=== PATIENT | male | born 1975 | race Caucasian/White ===

== ENCOUNTER 2017-01-26 13:05 | Emergency (ER) | payer OTHER ==
[2017-01-26 13:31] VITALS: BP 149/92; PULSE 83; RESP 16; TEMP 98.9; O2SAT 92
[2017-01-26] MEDS ORDERED: CEPHALEXIN 500 MG CAP PO ONE (14:45)
--- NOTE | 2017-01-26 14:49 | EDPHY ---
H & P Time Seen by Provider: 01/26/17 14:39 HPI/ROS: CHIEF COMPLAINT: Left middle digit lens grinder rough injury HISTORY OF PRESENT ILLNESS: 41-year-old [id number] male with up-to- date tetanus sustained accidental laceration to his left middle digit palmar aspect PIP joint when he was using a lens grinder rough that slipped. He is complaining of inability to flex at the PIP joint, complaining decreased sensation distally. No foreign body sensation. Occurred shortly prior to arrival. PRIMARY CARE PROVIDER:worker's compensation 2) HEAD: Normocephalic 3) HEENT: sclera anicteric 4) LUNGS: Breathing comfortably. 5) SKIN: left middle digit palmar aspect at the PIP joint transverse 1.5 cm laceration 6) MUSCULOSKELETAL: no malrotation. Normal cascading of digit.. FDP and FDS are nonfunctional of the affected digit. 7) NEUROLOGIC: Decreased sensation distally. Smoking Status: Current every day smoker Constitutional: Initial Vital Signs Temperature (C) 37.2 C 01/26/17 13:27 Heart Rate 83 01/26/17 13:27 Respiratory Rate 16 01/26/17 13:27 Blood Pressure 149/92 H 01/26/17 13:27 O2 Sat (%) 92 01/26/17 13:27 O2 Delivery Mode Room Air Allergies/Adverse Reactions: No Known Allergies Allergy (Unverified 01/26/17 13:26) Home Medications: Medication Instructions Recorded Cephalexin [Keflex] 500 mg PO TID 7 Days cap 01/26/17 Hydrocodone/APAP 5/325 [Antimony 1 tab PO Q6 PRN #7 tab 01/26/17 5/325 (RX)] Lisinopril 01/26/17 MDM/Departure - MDM Imaging Results: Imaging Impressions Finger X-Ray 01/26/17 13:31 Impression: Negative. No acute fracture or foreign body. Images reviewed myself Procedures: Procedure: Laceration repair. I explained the indications, risks and benefits for both laceration repair and anesthetic administration. Verbal consent was obtained from the patient . The laceration on the left middle digit was anesthetized using 0.5% bupivicaine without epinephrine . After anesthetic administered the patient was observed for a period of time and had no apparent adverse effects. The wound was cleaned , prepped, draped in normal sterile fashion and explored to its base. No foreign body seen, no foreign bodies palpated. Unable to visualize deep structures, he is noted to have FDP and FDS malfunction The wound was closed with 3 simple interrupted 5 O Ethilon sutures.. The wound repair was simple. The procedure was performed by myself. Patient has been informed that scarring will occur, although efforts have been made to minimize this. Procedure: Splint An aluminum finger splint was applied by ER aviation survival technician. After application of the splint I returned and re-examined the patient. The splint was adequately immobilizing the joint and distal to the splint the patient's circulation and sensation were intact. Patient shows no signs of compartment syndrome. Was given orthopedic precautions. Medications Given: Discontinued Medications Cephalexin HCl (Keflex) 500 mg PO EDNOW ONE PRN Reason: Protocol Stop: 01/26/17 14:46 Last Admin: 01/26/17 14:58 Dose: 500 mg ED Course/Re-evaluation: Patient given dose of oral Keflex, tetanus is already up-to-date. Phone consultation with on-call hand surgery Dr. Mendez at 3:36 p.m. who recommended patient come to the office today (Sunday) or on Sunday. This information has been conveyed to the patient and states that he will likely go directly to their office for initial evaluation today - Depart Disposition: Home, Routine, Self-Care Clinical Impression: Left middle digit laceration Condition: Good Instructions: Care For Your Stitches (ED), Laceration (ED) Additional Instructions: Return to the ER if you develop redness, swelling, discharge, warmth to the wound, red streaks going up your arm, or any other symptoms that concern you. Prescriptions: Cephalexin [Keflex] 500 mg PO TID 7 Days cap Hydrocodone/APAP 5/325 [Antimony 5/325 (RX)] 1 tab PO Q6 PRN #7 tab PRN Reason: Pain, Severe Referrals: Afshin Mendez MD [Medical Doctor] - 01/26/17 4:00 pm (Go directly to see Dr. Afshin Mendez, a hand surgeon. If you cannot make it today go on Sunday)
== END 2017-01-26 16:20 | disposition home or self-care (01) ==
PROC: 0HQGXZZ Repair Left Hand Skin, External Approach (ICD-10-PCS; principal; 2017-01-26)
DX: S61.213A Laceration without foreign body of left middle finger without damage to nail, initial encounter (principal); F17.200 Nicotine dependence, unspecified, uncomplicated; W26.8XXA Contact with other sharp object(s), not elsewhere classified, initial encounter; Y99.8 Other external cause status; Y93.89 Activity, other specified
CPT/HCPCS: L3925